=== PATIENT | female | born 1955 | race Caucasian/White ===

== ENCOUNTER 2017-04-08 09:01 | Outpatient (CLI) ==
[2017-04-10 01:20] LABS: ESTRADIOL < 5.0 pg/mL (.); FOLLICLE STIMULATING HORMONE 37.4 mIU/mL (.)
== END 2017-04-08 09:02 | disposition home or self-care (01) ==
LOC: LAB 09:01
DX: N95.1 Menopausal and female climacteric states (principal); R53.83 Other fatigue
CPT/HCPCS: 36415; 82670; 83001; 84439; 84443

== ENCOUNTER 2017-10-22 08:15 | Outpatient (CLI) | END 2017-10-22 08:16 | disposition home or self-care (01) | LOC: LAB 08:15 | PROVIDERS: ATTEND Family Medicine | DX: E03.9 Hypothyroidism, unspecified (principal); N18.3 Chronic kidney disease, stage 3 (moderate); D63.1 Anemia in chronic kidney disease; G47.33 Obstructive sleep apnea (adult) (pediatric); J32.9 Chronic sinusitis, unspecified; K21.9 Gastro-esophageal reflux disease without esophagitis; F32.9 Major depressive disorder, single episode, unspecified; F41.9 Anxiety disorder, unspecified | CPT/HCPCS: 36415; 80048; 80061; 80178; 82306; 82607; 82746; 84439; 84443; 85025 ==

== ENCOUNTER 2018-04-11 08:09 | Outpatient (CLI) | payer OTHER | END 2018-04-11 08:10 | disposition home or self-care (01) | LOC: LAB 08:09 | PROVIDERS: ATTEND Family Medicine | DX: E87.6 Hypokalemia (principal); R53.82 Chronic fatigue, unspecified; N18.3 Chronic kidney disease, stage 3 (moderate); D63.1 Anemia in chronic kidney disease; E03.9 Hypothyroidism, unspecified | CPT/HCPCS: 36415; 80048; 80178; 83540; 84439; 84443; 85025; 86803 ==

== ENCOUNTER 2018-05-20 12:38 | Outpatient (CLI) ==
--- NOTE | 2018-05-20 13:46 | CT ---
EXAM: CT of the abdomen pelvis without contrast History: Upper abdominal pain. Comparison: CT abdomen 01/01/2014 Technique: Multiplanar CT images through the abdomen pelvis were obtained without the administration of IV contrast Findings: Subsegmental atelectasis seen within the lower lungs. Severe degenerative disc disease aga in seen at L5-S1. Severe facet hypertrophy within the lower lumbar spine. Status post cholecystectomy. Calcified granulomas within the spleen. No focal liver lesions. No per ipancreatic inflammation. Stable small benign calcifications within the adrenal glands. No renal sto isra and no hydronephrosis. 8 mm benign proteinaceous cyst within the inferior pole of the left kidne y. No perinephric stranding. No ureteral calculi. No dilated loops of bowel. Moderate colonic stoo l. No bladder wall thickening. No free air and no ascites. Uterus is not seen. No pelvic masses. The appendix is not seen. There are no secondary signs of appendicitis. No free air and no ascites . Impression: 1. No acute intra-abdominal or pelvic process. 2. Small benign proteinaceous cyst within the left kidney.
== END 2018-05-20 12:39 | disposition home or self-care (01) ==
LOC: RAD 12:38
PROVIDERS: ATTEND Family Medicine
DX: R10.9 Unspecified abdominal pain (principal)

== ENCOUNTER 2018-08-06 09:00 | Outpatient (CLI) | payer OTHER | END 2018-08-06 09:01 | disposition home or self-care (01) | LOC: LAB 09:00 | PROVIDERS: ATTEND Family Medicine | DX: R11.0 Nausea (principal); R10.9 Unspecified abdominal pain | CPT/HCPCS: 36415; 80053; 82150; 83690; 85025 ==

== ENCOUNTER 2018-08-13 07:55 | Outpatient (CLI) | END 2018-08-13 07:56 | disposition home or self-care (01) | LOC: LAB 07:55 | PROVIDERS: ATTEND Family Medicine | DX: R10.9 Unspecified abdominal pain (principal) | CPT/HCPCS: 36415; 82150; 83690 ==

== ENCOUNTER 2018-10-02 07:46 | Outpatient (CLI) | END 2018-10-02 07:47 | disposition home or self-care (01) | LOC: LAB 07:46 | PROVIDERS: ATTEND Family Medicine | DX: E03.9 Hypothyroidism, unspecified (principal); N18.3 Chronic kidney disease, stage 3 (moderate); E66.9 Obesity, unspecified; E89.40 Asymptomatic postprocedural ovarian failure; Z51.81 Encounter for therapeutic drug level monitoring; Z00.00 Encounter for general adult medical examination without abnormal findings; R25.1 Tremor, unspecified; G47.33 Obstructive sleep apnea (adult) (pediatric); E61.1 Iron deficiency; E87.6 Hypokalemia; D64.9 Anemia, unspecified; Z79.890 Hormone replacement therapy | CPT/HCPCS: 36415; 80053; 80061; 80178; 82306; 82607; 82746; 84439; 84443; 85025 ==